=== PATIENT | male | born 1940 | race Caucasian/White ===

== ENCOUNTER 2017-07-07 22:46 | Emergency (ER) | payer MEDICARE ==
--- NOTE | 2017-07-07 23:26 | Emergency Department Record ---
History of Present Illness - General Chief Complaint: Fall Injury Stated Complaint: FALL Time Seen by Provider: 07/07/17 22:59 Source: Patient Mode of Arrival: EMS Limitations: Altered mental status - History of Present Illness Initial Comments: The patient supposedly was found on all 4 extremities on the floor but no fall was witnessed. The patient denies any pain or any discomfort and denies any falling but he does have significant dementia. He is a resident at [facility] and their protocol is to send the patient to the ER if there is any possibility of a fall so he is now here for further evaluation. There was no reported recent illness or injury and his present mental status is his baseline per EMS. MD Complaint: Other Onset/Timin -: Minutes(s) Fall Witnessed: No Place [facility] Loss of Consciousness: Unsure - Related Data Home Medications Medication Instructions Recorded Confirmed Last Taken Amantadine HCl [Amantadine] 100 mg PO BID 07/07/17 07/07/17 1 Day Ago ~07/06/17 Aspirin [Aspir-Low] 81 mg PO DAILY 07/07/17 07/07/17 1 Day Ago ~07/06/17 Clonidine [Catapres-Tts 1] 1 patch TOP WEEKLY 07/07/17 07/07/17 07/01/17 Divalproex Sodium [Depakote 500 mg PO TID 07/07/17 07/07/17 07/07/17 Sprinkle] Guaifen/Dextromethorphan/PE 10 ml PO DAILY PRN 07/07/17 07/07/17 Unknown [Robafen Cf Liquid] Zolpidem Tartrate 10 mg PO DAILY 07/07/17 07/07/17 1 Day Ago ~07/06/17 Allergies Allergy/AdvReac Type Severity Reaction Status Date / Time risperidone Allergy PT UNSURE Verified 07/07/17 22:50 OF REACTION Sulfa (Sulfonamide Allergy HIVES Verified 02/14/16 15:14 Antibiotics) Travel Screening - Travel/Exposure Within Last 30 Days Have you traveled within the last 30 days?: No - Travel Symptoms Symptom Screening: None Review of Systems Constitutional: Denies: Chills, Fever Eyes: Denies: Eye discharge Respiratory: Denies: Cough, Dyspnea Cardiovascular: Denies: Arrhythmia, Chest pain Past Medical History - SOCIAL HISTORY Smoking Status: Never smoker - RESPIRATORY Hx Respiratory Disorders: Yes Hx Asthma: Yes Hx COPD: Yes - CARDIOVASCULAR Hx Cardio Disorders: Yes Hx CHF: Yes Hx Hypertension: Yes - NEURO Hx Neuro Disorders: Yes Hx Dementia: Yes - GI Hx GI Disorders: No - Hx Genitourinary Disorders: Yes Hx UTI: Yes - ENDOCRINE Hx Endocrine Disorders: No - MUSCULOSKELETAL Hx Musculoskeletal Disorders: No - PSYCH Hx Psych Problems: Yes Hx Anxiety: Yes Comment:: sees geropsych - HEMATOLOGY/ONCOLOGY Hx Hematology/Oncology Disorders: No Family Medical History Any Significant Family History?: No Family Hx Comment (NOT TO BE USED IN PLACE OF ITEMS BELOW): unknown Physical Exam - General General Appearance: Alert, Cooperative, No acute distress - Head Head exam: Atraumatic, Normocephalic, Normal inspection (There is no signs of any fall or head injury.) - Eye Eye exam: Normal appearance, PERRL - ENT ENT exam: Normal exam, Mucous membranes moist, Normal external ear exam, Normal orophraynx, TM's normal bilaterally Throat exam: Normal inspection. negative: Tonsillar erythema, Tonsillar exudate - Neck Neck exam: Normal inspection, Full ROM. negative: Tenderness (There is no Cspine tenderness.) - Respiratory Respiratory exam: Normal lung sounds bilaterally. negative: Respiratory distress - Cardiovascular Cardiovascular Exam: Regular rate, Normal rhythm, Normal heart sounds - GI/Abdominal GI/Abdominal exam: Soft, Normal bowel sounds. negative: Tenderness - Extremities Extremities exam: Normal inspection, Full ROM, Normal capillary refill. negative: Tenderness - Neurological Neurological exam: Alert, Normal gait (The patient is up walking on his own with no difficulty.). negative: Abnormal gait, Motor sensory deficit, Oriented X3 (The patient is awake and alert and is only oriented to his name which is his baseline.) Course Vital Signs 07/07/17 22:51 Temperature 98.5 F Pulse Rate 48 L Respiratory 16 Rate Blood Pressure 162/84 Pulse Ox 95 - Reevaluation(s) Reevaluation #1: The patient is doing well at this time. His HR is slightly slower than in the past but he is Catapres and Coreg for HTN. I will discuss adjusting his medicines with Dr. Thopmson in the AM because he is the patient's PCP. The patient appears very stable at this time and is ready for home. 07/07/17 23:30 Medical Decision Making - Data Complexity MDM Data: EKG Ordered and/or Reviewed - EKG Data -: EKG Interpreted by Me EKG: No Acute Changes (Sinus ivory at 47, Neg for any ischemic changes.) Disposition Disposition: Discharge Clinical Impression: History of falling Disposition: Home, Self-Care Condition: (1) Good Instructions: Fall Prevention for Older Adults (ED) Additional Instructions: Please see Dr. Thompson later this week for further evaluation. Return to the ER for any problems. Forms: Patient Portal Access Time of Disposition: 23:32 Quality - Quality Measures Quality Measures: N/A - Blood Pressure Screening View Details: Yes Does Patient Have Any of the Following: No, Active Dx of HTN Blood Pressure Classification: Hypertensive Reading Systolic Measurement: 154 Diastolic Measurement: 78 Screening for High Blood Pressure: Patient Exclusion, Hx of HTN [[id number]]
== END 2017-07-08 00:03 | disposition home or self-care (01) ==
LOC: ER 22:46
DX: Z04.3 Encounter for examination and observation following other accident (principal); I50.9 Heart failure, unspecified; F03.90 Unspecified dementia, unspecified severity, without behavioral disturbance, psychotic disturbance, mood disturbance, and anxiety; I10 Essential (primary) hypertension; W19.XXXA Unspecified fall, initial encounter; Y92.129 Unspecified place in nursing home as the place of occurrence of the external cause
CPT/HCPCS: 93005; 93010; 99283